=== PATIENT | female | born 1950 | race African-American/Black ===

== ENCOUNTER 2024-06-10 07:35 | Day surgery (SDC) | payer OTHER ==
[2024-06-02 14:11] VITALS: BMI 20.9
[2024-06-10 10:03] VITALS: PULSE 68; RESP 16; TEMP 96.9
[2024-06-10 10:25] VITALS: BP 132/78
== END 2024-06-10 10:34 | disposition home or self-care (01) ==
LOC: FASU-ENDO 07:35
PROVIDERS: ATTEND Internal Medicine Gastroenterology
PROC: 0DBN8ZX Excision of Sigmoid Colon, Via Natural or Artificial Opening Endoscopic, Diagnostic (ICD-10-PCS; principal; 2024-06-10 09:41)
DX: Z12.11 Encounter for screening for malignant neoplasm of colon (principal); K63.5 Polyp of colon; K64.1 Second degree hemorrhoids; K64.8 Other hemorrhoids
CPT/HCPCS: 82962; 88305-TC